=== PATIENT | male | born 1970 | race Caucasian/White ===

== ENCOUNTER 2018-11-20 19:11 | Emergency (ER) | payer BC ==
[2018-11-20 19:53] VITALS: BP 174/84
--- NOTE | 2018-11-20 20:05 | UC ---
Abdominal Pain Male HPI - HPI Summary HPI Summary: mid epigastric pain today no change with movement or activity --is not hungry, temperature increased to 100.3 this evening---no stool today has been thirsty and drinking alert today - History of Current Complaint Chief Complaint: UCGI Stated Complaint: ABD PAIN, FEVER Time Seen by Provider: 11/20/18 19:57 Hx Obtained From: Patient Onset/Duration: Sudden Onset, Lasting Days - 1, Still Present Timing: Constant Pain Intensity: 6 Pain Scale Used: 0-10 Numeric Location: Epigastric Radiates: No Character: Burning, Sharp Aggravating Factor(s): Nothing Alleviating Factor(s): Nothing Associated Signs And Symptoms: Positive: Decreased Appetite - Allergies/Home Medications Allergies/Adverse Reactions: Allergies Allergy/AdvReac Type Severity Reaction Status Date / Time No Known Allergies Allergy Verified 11/20/18 19:54 PMH/Surg Hx/FS Hx/Imm Hx Previously Healthy: No Endocrine History: Hypothyroidism Cardiovascular History: Hypertension - takes meds at bed time - Surgical History Surgical History: Yes Surgery Procedure, Year, and Place: 2005- RIGHT SHOULDER SURGERY [place]. 2000 RIGHT WRIST CARPAL TUNNEL RELEASE [place]. 01/22/2016 ANAL [facility] - Family History Known Family History: Positive: None - Social History Occupation: Employed Full-time Lives: With Family Alcohol Use: Daily Alcohol Amount: 3 DAILY Substance Use Type: None Smoking Status (MU): Never Smoked Tobacco Have You Smoked in the Last Year: No Review of Systems All Other Systems Reviewed And Are Negative: Yes Constitutional: Positive: Negative Skin: Positive: Negative Eyes: Positive: Negative ENT: Positive: Negative Respiratory: Positive: Negative Cardiovascular: Positive: Negative Gastrointestinal: Positive: Abdominal Pain Genitourinary: Positive: Negative Motor: Positive: Negative Neurovascular: Positive: Negative Musculoskeletal: Positive: Negative Neurological: Positive: Negative Psychological: Positive: Negative Is Patient Immunocompromised?: No Physical Exam Triage Information Reviewed: Yes Appearance: Well-Nourished, Ill-Appearing - mild, Pain Distress - mild Vital Signs: Initial Vital Signs Temp 98.1 F 11/20/18 19:49 Pulse 78 11/20/18 19:49 Resp 19 11/20/18 19:49 BP 174/84 11/20/18 19:49 Pulse Ox 100 11/20/18 19:49 Vital Signs Reviewed: Yes Eye Exam: Normal Eyes: Positive: Conjunctiva Clear ENT Exam: Normal ENT: Positive: Normal ENT inspection, Hearing grossly normal, Pharynx normal, TMs normal, Uvula midline. Negative: Nasal congestion, Tonsillar swelling, Trismus, Muffled voice, Hoarse voice, Dental tenderness, Sinus tenderness Dental Exam: Normal Neck exam: Normal Neck: Positive: Supple, Nontender, No Lymphadenopathy Respiratory Exam: Normal Respiratory: Positive: Chest non-tender, Lungs clear, Normal breath sounds, No respiratory distress, No accessory muscle use Cardiovascular Exam: Normal Cardiovascular: Positive: RRR, No Murmur, Pulses Normal, Brisk Capillary Refill Abdominal Exam: Normal Abdomen Description: Positive: Nontender, No Organomegaly, Soft, CVA Tenderness (R), CVA Tenderness (L). Negative: Distended, Hepatomegaly, McBurney's Point Tenderness Bowel Sounds: Positive: Present Musculoskeletal Exam: Normal Musculoskeletal: Positive: Strength Intact, ROM Intact, No Edema Neurological Exam: Normal Neurological: Positive: Alert, Muscle Tone Normal Psychological Exam: Normal Psychological: Positive: Normal Response To Family Skin Exam: Normal Diagnostics - Radiology No standard instances Radiology Interpretation Completed By: ED Physician - no evidence of obstruction Abd Pain Male Course/Dx - Course Course Of Treatment: npo to [facility] (patient preference) with driving - Differential Dx/Clinical Impression Provider Diagnosis: Acute abdominal complaint - Physician Notification/Consults Time Discussed With Above Provider: 20:45 - Cintia Rodriguez Discharge - Sign-Out/Discharge Documenting (check all that apply): Patient Departure All imaging exams completed and their final reports reviewed: No - Discharge Plan Condition: Fair Disposition: HOME-RECOMMEND TO ED Patient Education Materials: Acute Abdominal Pain (ED) Referrals: Ander Diaz MD [Primary Care Provider] - Additional Instructions: nothing to eat of drink-go directly to the emergency department at [facility] (your choice) for further assessment and care - Billing Disposition and Condition Condition: FAIR Disposition: Home-Recommend to ED
--- NOTE | 2018-11-21 09:35 | UC ---
- Progress Note Progress Note: Report: No dilated bowel loops or significant retained stool at the colon. No suspicious calcifications or mass effect. Unremarkable soft tissue contours. IMPRESSION: #. No abdominal pelvic pathologic process evident. X-ray negative, no change in treatment. Course/Dx - Diagnoses Provider Diagnoses: Acute abdominal complaint - Provider Notifications Time Discussed With Above Provider: 20:45 - Cintia Rodriguez Discharge - Sign-Out/Discharge Documenting (check all that apply): Post-Discharge Follow Up All imaging exams completed and their final reports reviewed: Yes - Discharge Plan Condition: Fair Disposition: HOME-RECOMMEND TO ED Patient Education Materials: Acute Abdominal Pain (ED) Referrals: Ander Diaz MD [Primary Care Provider] - Additional Instructions: nothing to eat of drink-go directly to the emergency department at [facility] (your choice) for further assessment and care - Billing Disposition and Condition Condition: FAIR Disposition: Home-Recommend to ED
== END 2018-11-20 20:54 | disposition home health service (06) ==
LOC: UCEAST 19:11
DX: R10.9 Unspecified abdominal pain (principal); I10 Essential (primary) hypertension; E03.9 Hypothyroidism, unspecified; Z79.899 Other long term (current) drug therapy
CPT/HCPCS: 74018; 81003; 99212; G0463